=== PATIENT | male | born 1990 | race African-American/Black ===

== ENCOUNTER 2022-05-16 12:14 | Emergency (ER) | payer OTHER ==
[~2022-05-16] VITALS: Ht 195.6 cm; Wt 142.9 kg
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
[2022-05-16] MEDS ORDERED: KETOROLAC TROMETHAMINE INJ 60 MG/2 ML VIAL IM ONE (13:00)
[2022-05-16] MEDS ORDERED: CYCLOBENZAPRINE 10 MG TABLET PO ONE (13:00)
[2022-05-16] MEDS ORDERED: KETOROLAC TROMETHAMINE INJ 30 MG/ML VIAL ONE (13:05)
[2022-05-16] MEDS ORDERED: CYCLOBENZAPRINE 10 MG TABLET ONE (13:06)
--- NOTE | 2022-05-16 13:08 | NUR ---
PT TAKEN TO RADIOLOGY
--- NOTE | 2022-05-16 13:25 | NUR ---
PT RETURNED FROM RADIOLOGY
--- NOTE | 2022-05-16 13:29 | NUR ---
TORADOL IM GIVEN ON L DELTOID.
[2022-05-16] MEDS ORDERED: LIDO1ADH82 TP (14:04)
[2022-05-16] MEDS ORDERED: NAPR-1164 PO (14:04)
[2022-05-16] MEDS ORDERED: CYCL5TAB PO (14:04)
[2022-05-16 14:18] VITALS: BP 137/84
--- NOTE | 2022-05-16 14:24 | NUR ---
Patient discharged to home in stable condition. Written and verbal after care instructions given. Patient verbalizes understanding of instruction.
== END 2022-05-16 14:24 | disposition home or self-care (01) ==
LOC: ER 12:19
DX: S20.211A Contusion of right front wall of thorax, initial encounter (principal); V49.49XA Driver injured in collision with other motor vehicles in traffic accident, initial encounter; Y93.89 Activity, other specified; Y92.413 State road as the place of occurrence of the external cause; Y99.8 Other external cause status
CPT/HCPCS: 99285; 71046; 96372; 93005; 36415; 84484; J1885